=== PATIENT | male | born 1965 | race Two or more races ===

== ENCOUNTER 2017-03-21 20:46 | Emergency (ER) | payer SELFPAY ==
[~2017-03-21] VITALS: Ht 190.5 cm; Wt 112.9 kg
[2017-03-21] MEDS ORDERED: SITA100T (21:04)
[2017-03-21] MEDS ORDERED: ROSU10TA (21:04)
[2017-03-21] MEDS ORDERED: INSULIN REGULAR, HUMAN 1,000 UNITS/10 ML VIAL SUBCUT ONE (22:00)
--- NOTE | 2017-03-21 22:02 | NUR ---
Patient discharged to home in stable conditon. Written and verbal after care instructions given. Patient verbalizes understanding of instructions.
[2017-03-21] MEDS ORDERED: INSULIN REGULAR, HUMAN 300 UNIT/3 ML VIAL ONE (22:13)
== END 2017-03-21 22:05 | disposition home or self-care (01) ==
LOC: ER 20:52
DX: E11.65 Type 2 diabetes mellitus with hyperglycemia (principal)
CPT/HCPCS: A4663; J1815